=== PATIENT | female | born 1985 | race Caucasian/White ===

== ENCOUNTER 2017-07-08 20:28 | Emergency (ER) | payer OTHER ==
[~2017-07-08] VITALS: Ht 149.9 cm; Wt 46.8 kg
[~2017-07-08 20:28] MED LIST: DIPH25CA65 PO
[2017-07-08 20:32] VITALS: BP 110/82; PULSE 91; TEMP 37; O2SAT 99; Ht 149.9 cm; Wt 46.8 kg
[2017-07-08] MEDS ORDERED: ACETAMINOPHEN 500 MG TAB PO STA (21:07)
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
== END 2017-07-08 22:01 | disposition home or self-care (01) ==
LOC: C.EDB 20:33 → C.EDD 22:01
DX: S09.90XA Unspecified injury of head, initial encounter (principal); V49.40XA Driver injured in collision with unspecified motor vehicles in traffic accident, initial encounter; Y92.488 Other paved roadways as the place of occurrence of the external cause; M54.2 Cervicalgia; R10.2 Pelvic and perineal pain; F17.200 Nicotine dependence, unspecified, uncomplicated

== ENCOUNTER 2017-11-04 10:55 | Emergency (ER) | payer OTHER ==
[~2017-11-04] VITALS: Ht 149.9 cm; Wt 52.0 kg
[2017-11-04 10:58] VITALS: TEMP 36.9; Ht 149.9 cm; Wt 52.0 kg
--- NOTE | 2017-11-04 11:51 | DIAGNOSTIC IMAGING REPORT ---
CHEST 2 VIEWS ROUTINE HISTORY: 32 years-old Female COUGH acute cough with sore throat COMPARISON: None available TECHNIQUE: PA and lateral views of the chest FINDINGS: Cardiomediastinal and hilar silhouettes are within normal limits. There is no pneumothorax, pleural effusion, focal airspace consolidation or overt pulmonary edema. Bones of the chest appear grossly intact. Cholecystectomy clips noted. IMPRESSION: No acute process. The above report was generated using voice recognition software. It may contain grammatical, syntax or spelling errors. Electronically signed by: Jesse Oden M.D. 11/04/2017 11:49 AM Dictated Date/Time: 11/04/2017 11:48 AM
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
[2017-11-04] MEDS ORDERED: ALBUTEROL HFA 8 GM INHALER INH ONE (12:00)
[2017-11-04] MEDS ORDERED: BENZ1CAP90 PO (12:00)
[2017-11-04 12:34] VITALS: BP 105/63; PULSE 62; O2SAT 100
== END 2017-11-04 12:36 | disposition home or self-care (01) ==
LOC: C.EDB 10:56 → C.EDC 12:36
DX: J06.9 Acute upper respiratory infection, unspecified (principal); F17.200 Nicotine dependence, unspecified, uncomplicated